=== PATIENT | female | born 1985 ===

== ENCOUNTER 2024-08-14 05:05 | Day surgery (SDC) | payer OTHER ==
[2024-08-05 08:51] VITALS: BP 118/79
[2024-08-05 09:20] LABS: HEMATOCRIT 40.7 % (36.0-45.00); HEMOGLOBIN 13.8 g/dL (12.0-15.00); MEAN CELL VOLUME 92.9 fL (80.00-100.00); MEAN CORPUSCULAR HEMOGLOBIN 31.5 pg (27.00-32.0); MEAN CORPUSCULAR HGB CONC 33.9 g/dl (32.0-36.0); PLATELET COUNT 281 K/uL (150-450); RED BLOOD COUNT 4.38 M/uL (4.00-6.00); RED CELL DISTRIBUTION WIDTH 12.9 % (11.5-14.5)
[2024-08-05 09:37] LABS: PH,URINE 5.5 (5.0-8.0); URINE APPEARANCE Clear; URINE BILIRRUBIN Negative (NEGATIVE); URINE BLOOD Negative; URINE COLOR Yellow; URINE GLUCOSE Negative (NEGATIVE); URINE KETONE Negative (NEGATIVE); URINE LEUKOCYTE Negative; URINE NITRATE Negative; URINE PROTEIN Negative (NEGATIVE); URINE UROBILINOGEN 0.2 E.U./dl
[2024-08-05 09:46] LABS: URINE BACTERIA 194.5 uL (0.0-1933); URINE EPITHELIAL CELLS 4.4 uL (0.0-38.8); URINE WBC 4.7 uL (0.0-23.2)
[2024-08-05 09:49] LABS: INR 0.98; PARTIAL THROMBOPLASTIN TIME 28.2 SECONDS (22.0-34.0); PROTHROMBIN TIME 10.7 SECONDS (9.0-11.5)
[2024-08-05 10:01] LABS: URINE RBC 0.7 uL (0.0-20.8)
[2024-08-05 10:11] LABS: ALBUMIN 4.3 gm/dL (3.4-5.0); BILIRUBIN TOTAL 0.51 mg/dL (0.3-1.2); CALCIUM 9.8 mg/dL (8.5-10.1); CREATININE SERUM 0.73 mg/dL (0.55-1.02); GFR 88.75; GLOBULINA 3.7 G/DL (2.4-3.5); POTASSIUM 4.45 mEq/L (3.5-5.1)
[~2024-08-14] VITALS: Ht 162.6 cm; Wt 63.5 kg
[2024-08-14] MEDS ORDERED: POVIDONE-IODINE 118 ML BOTT TOP ONE (08:15)
[2024-08-14] MEDS ORDERED: CEFAZOLIN SODIUM 1,000 MG VIAL IV ONE (08:30)
[2024-08-14] MEDS ORDERED: MORPHINE SULFATE 4 MG/ML VIAL IV ONE ×2 (09:40→10:10)
[2024-08-14] MEDS ORDERED: NAPROXEN500 MG PO (10:54)
[2024-08-14] MEDS ORDERED: DOXYCYCLINE HY100 M2 PO (10:54)
== END 2024-08-14 16:45 | disposition home or self-care (01) ==
LOC: CIR.AMB 05:05
PROVIDERS: ATTEND Obstetrics & Gynecology
DX: D25.0 Submucous leiomyoma of uterus (principal); N92.0 Excessive and frequent menstruation with regular cycle; N84.0 Polyp of corpus uteri

== ENCOUNTER 2024-08-22 15:30 | Emergency (ER) | payer OTHER ==
[~2024-08-22] VITALS: Ht 162.6 cm; Wt 65.8 kg
[~2024-08-22 15:30] MED LIST: DOXYCYCLINE HY100 M2 PO; NAPROXEN500 MG PO
[2024-08-22] MEDS ORDERED: FAMOTIDINE/PF 20 MG/2 ML VIAL IV ONE (17:45)
[2024-08-22] MEDS ORDERED: ORPHENADRINE CITRATE 30 MG/ML AMPUL IM ONE (17:45)
[2024-08-22] MEDS ORDERED: KETOROLAC TROMETHAMINE 30 MG VIAL IV ONE (17:45)
[2024-08-22] MEDS ORDERED: 0.9 % SODIUM CHLORIDE 500 ML IV ONE (17:45)
[2024-08-22] MEDS ORDERED: ONDANSETRON HCL 2 MG/ML VIAL IV ONE (17:45)
[2024-08-22] MEDS ORDERED: ORPHENADRINE CITRATE 30 MG/ML AMPUL ONE (19:31)
[2024-08-22] MEDS ORDERED: KETOROLAC TROMETHAMINE 60 MG VIAL IM ONE (19:32)
[2024-08-22] MEDS ORDERED: ONDANSETRON HCL 2 MG/ML VIAL ONE (19:32)
[2024-08-22] MEDS ORDERED: FAMOTIDINE/PF 20 MG/2 ML VIAL ONE (19:32)
[2024-08-22 20:09] LABS: HEMOGLOBIN 13.5 g/dL (12.0-15.00); MEAN CELL VOLUME 93.2 fL (80.00-100.00); MEAN CORPUSCULAR HEMOGLOBIN 31.6 pg (27.00-32.0); MEAN CORPUSCULAR HGB CONC 33.9 g/dl (32.0-36.0); PLATELET COUNT 280 K/uL (150-450); RED BLOOD COUNT 4.29 M/uL (4.00-6.00)
[2024-08-22 20:44] LABS: ALBUMIN 4.3 gm/dL (3.4-5.0); BILIRUBIN TOTAL 0.49 mg/dL (0.3-1.2); CALCIUM 9.4 mg/dL (8.5-10.1); CREATININE SERUM 0.72 mg/dL (0.55-1.02); GFR 90.18; POTASSIUM 4.05 mEq/L (3.5-5.1); TOTAL PROTEIN 7.3 gm/dL (6.4-8.2)
[2024-08-22 21:04] LABS: PH,URINE 5.5 (5.0-8.0); URINE APPEARANCE Clear; URINE BILIRRUBIN Negative (NEGATIVE); URINE BLOOD Negative; URINE COLOR Yellow; URINE GLUCOSE Negative (NEGATIVE); URINE KETONE 15 (NEGATIVE); URINE LEUKOCYTE Negative; URINE NITRATE Negative; URINE PROTEIN Negative (NEGATIVE); URINE UROBILINOGEN 0.2 E.U./dl
[2024-08-22 21:05] LABS: URINE RBC 6.3 uL (0.0-20.8); URINE WBC 18.9 uL (0.0-23.2)
[2024-08-22 21:08] LABS: URINE CAST 0.44 uL (0.0-1.40)
[2024-08-22] MEDS ORDERED: DICLOFENAC SODI50 MG PO (22:14)
[2024-08-22] MEDS ORDERED: NORFLEX100MG PO (22:14)
[2024-08-22] MEDS ORDERED: ONDANSETRON HCL4 MG PO (22:23)
== END 2024-08-22 22:52 ==
LOC: ER 15:32 → EDBD 16:00 → ER 22:52
PROVIDERS: General Practice
DX: M54.50 Low back pain, unspecified (principal)